=== PATIENT | female | born 1975 | race Two or more races ===

== ENCOUNTER 2018-03-24 10:09 | Outpatient (CLI) | payer OTHER | END 2018-03-24 10:14 | disposition home or self-care (01) | LOC: SONOGRAMA 10:09 | DX: E04.1 Nontoxic single thyroid nodule (principal) ==

== ENCOUNTER 2025-01-25 04:17 | Emergency (ER) | payer OTHER ==
[~2025-01-25] VITALS: Ht 152.4 cm; Wt 52.6 kg
[2025-01-25] MEDS ORDERED: AVAPRO150 MG PO (04:34)
[2025-01-25] MEDS ORDERED: SYNTHROID75 MCG PO (04:34)
[2025-01-25] MEDS ORDERED: CEFTRIAXONE SODIUM 1,000 MG VIAL IM STA (05:00)
[2025-01-25] MEDS ORDERED: TETANUS & DIPHTHERIA TOX,ADULT 0.5 ML VIAL IM STA (05:00)
[2025-01-25] MEDS ORDERED: CEFTRIAXONE SODIUM 1,000 MG VIAL ONE (05:02)
[2025-01-25] MEDS ORDERED: DIPHTH,PERTUSS(ACELL),TET VAC 0.5 ML SYRINGE IM ONE (05:03)
[2025-01-25] MEDS ORDERED: DIPHTH,PERTUSS(ACELL),TET VAC 0.5 ML SYRINGE IM STA (05:09)
[2025-01-25] MEDS ORDERED: CENTANY30 GM TOP (05:15)
[2025-01-25] MEDS ORDERED: AMOX-CLAV 875-1 EACH PO (05:15)
== END 2025-01-25 06:30 ==
LOC: ER 04:27
DX: S61.452A Open bite of left hand, initial encounter (principal); W54.0XXA Bitten by dog, initial encounter; Y93.89 Activity, other specified; Y92.89 Other specified places as the place of occurrence of the external cause; Y99.9 Unspecified external cause status; I10 Essential (primary) hypertension